=== PATIENT | female | born 1955 | race Two or more races ===

== ENCOUNTER → 2016-07-09 | Outpatient (CLI) | payer OTHER ==
[~2016-07-09] MED LIST: 3N1 COMMODE MC; ASPI-781 PO; ATOR20TA65 PO; BACTDS PO; CEPH500C PO; HYDR-3504 PO; LEVO125T PO; METO-429 PO; RAMI10CA48 PO; TRAM50TA2 PO; WALK1EAC23 MC
--- NOTE | 2016-07-09 10:25 | RADRPT ---
PROCEDURE: XR pelvis/left hip. CLINICAL INDICATION: Hip pain TECHNIQUE: AP pelvis/AP and lateral left hip views performed. COMPARISON: 01/11/2016 FINDINGS: There is a left total hip replacement. There is no evidence of loosening of the prosthesis. No hardw are failure identified. There is moderate to severe right hip osteoarthrosis. This is associated with joint space narrowing, subchondral sclerosis and osteophytosis. There is normal osseous mineralization. No fractures or osseous lesions are identified. The soft tissues are unremarkable. IMPRESSION: Left total hip replacement. Moderate to severe right hip osteoarthrosis. RPTAT: [facility] .Jamie Schwab MD, MD Date Time Electronically viewed and signed by .Jamie Schwab MD, on 07/09/2016 10:25 .B/
== END | disposition home or self-care (01) ==
LOC: HKI 09:50
PROVIDERS: ATTEND Orthopaedic Surgery
DX: M25.551 Pain in right hip (principal); M16.11 Unilateral primary osteoarthritis, right hip; M54.5 Low back pain; M54.16 Radiculopathy, lumbar region; Z96.642 Presence of left artificial hip joint
CPT/HCPCS: 73502; G0463

== ENCOUNTER 2017-04-28 08:25 | Inpatient (IN) | END 2017-04-30 15:22 | disposition home health service (06) | DRG 470 ==